=== PATIENT | female | born 1980 | race Caucasian/White ===

== ENCOUNTER → 2020-04-05 17:37 | Outpatient (CLI) | payer BC, SELFPAY ==
[2020-04-05 18:57] LABS: HCG,Quantitative 673 mIU/ml (0-5.42)
== END ==
PROVIDERS: Visit Provider Nurse Practitioner Obstetrics & Gynecology
DX: N92.6 Irregular menstruation, unspecified (principal)
CPT/HCPCS: 36415; 84702

== ENCOUNTER → 2020-05-04 13:06 | Outpatient (CLI) | payer BC, SELFPAY ==
--- NOTE | 2020-05-04 13:06 | US_ITS ---
PROCEDURE: US OB TRANSVAGINAL CLINICAL INDICATION: for dates COMPARISON: No exams were available for comparison FINDINGS: An intrauterine gestational sac is present with a pole with a crown-rump length of 1.41cm correlating to gestational age of 7weeks 5days. No heart tones are identified. A yolk sac is present. There is a 2.5 cm left ovarian cyst IMPRESSION: Nonviable intrauterine gestation. No heart tones identified Dictated by: Ernst Garcia MD 05/04/2020 15:12 Ernst Garcia MD in [place] 05/04/2020 15:12
== END ==
PROVIDERS: PCP Family Medicine; Visit Provider Nurse Practitioner Obstetrics & Gynecology
DX: Z34.90 Encounter for supervision of normal pregnancy, unspecified, unspecified trimester (principal)
CPT/HCPCS: 76817

== ENCOUNTER → 2020-05-08 10:37 | Outpatient (CLI) | payer BC, SELFPAY ==
[2020-05-08 10:59] LABS: Basophils % 0.4 % (0.1-2.0); Eosinophils # 0.2 K/mm3 (0.0-0.4); Eosinophils % 2.4 % (0.1-12.0); Hematocrit 38.8 % (37.0-47.0); Hemoglobin 13.5 g/dL (12.2-16.2); Lymphocytes # 2.1 K/mm3 (0.7-4.5); Lymphocytes % 25.2 % (10-50); Mean Corpuscular HGB Conc 34.7 g/dL (31.8-35.4); Mean Corpuscular Hemoglobin 31.9 pg (27.0-31.2); Mean Corpuscular Volume 91.9 fl (81-99); Mean Platelet Volume 8.5 fl (7.4-10.4); Monocytes # 0.4 K/mm3 (0.1-1.0); Monocytes % 4.3 % (1.7-9.3); Neutrophils # 5.8 K/mm3 (1.8-7.8); Neutrophils % 67.7 % (37.0-80.0); Platelet Count 301 K/mm3 (142-424); Red Blood Count 4.22 M/mm3 (4.20-5.40); White Blood Count 8.5 K/mm3 (4.8-10.8)
[2020-05-08 12:01] LABS: Chloride 106 mmol/L (98-107); Potassium 4.5 mmoL/L (3.5-5.1); Sodium 138 mmol/L (136-145)
[2020-05-08 12:04] LABS: Blood Urea Nitrogen 9 mg/dl (7-17); Estimated Glomerular Filt Rate 112 ml/min (>60); GFR (African American) 136 ML/MIN (>60)
[2020-05-08 12:05] LABS: Anion Gap 14.5 mEq/L (5-15); Calcium 9.9 mg/dl (8.4-10.2); Carbon Dioxide 22 mmol/L (22.0-30.0); Glucose 121 mg/dl (74-100)
[2020-05-08 12:44] LABS: Coronavirus 19 IgG Antibody Negative (Negative); Coronavirus 19 IgM Antibody Negative (Negative)
== END ==
PROVIDERS: Visit Provider Nurse Practitioner Obstetrics & Gynecology
DX: Z01.818 Encounter for other preprocedural examination (principal); O03.9 Complete or unspecified spontaneous abortion without complication
CPT/HCPCS: 36415; 80048; 85025; 86328

== ENCOUNTER 2020-05-09 07:08 | Day surgery (SDC) | payer BC, SELFPAY ==
[2020-05-09] VITALS (12 sets, daily range): BP systolic 115–149; BP diastolic 60–85; PULSE 69–91; RESP 12–18; TEMP 36.5–36.7; O2SAT 97–100; BMI 39.9
--- NOTE | 2020-05-09 07:50 | P.PN_ITS ---
[facility] Anesthesia Checklist - Patient Identification Patient Identification: Arm Band, Verbal (Name & ) - Structural Data Admitted From: Home Planned Operative Procedure/s: d and e Consent for Planned Operative Procedure(s) Verified: Yes Verified Documents: History and Physical - NPO Status Verified Time NPO: 00:00 - Additional verifications Patient : No Anesthesia Reactions: No Hx Blood Transfusions: No Blood Transfusion Reaction: No Cephalosporin Allergy: No Previous Colonoscopy: No - Cardiovascular Assessment Heart Sounds: S1 & S2 Pulse Strength: Baseline Pulse Rhythm: Regular Peripheral Edema: No - Airway Assessment C-Spine Mobility Assessed: Yes TMJ Mobility Assessed: Yes Dentition: Good Dentition - Neurological Assessment Level of Consciousness: Awake, Alert, Appropriate Hx Seizures: No Numbness or tingling in extremities: No - Anesthesia Plan Anesthesia Risk discussed: Yes Anesthesia Plan: Verified ASA Class: II Anesthesia Type: General [facility] History I have reviewed the patient's past medical history: Yes Medical History: Denies:: Cancer, Diabetes Mellitus Type 1, Diabetes Mellitus Type 2, Internal Pacemaker, MRSA, Seizures *Have you ever received a pneumonia vaccine?: No *Have you received a flu vaccine this season?: No Other Medical History: Reports: Sinus Problems. Denies: Blood Transfusion Reaction Anesthesia experience/problems:: none Other Surgeries: Yes: Cholecystectomy, Diagnostic Lap. No: Pacemaker Amputation: No Fractures: No - *Social History Smoking Status: Never smoker Alcohol Intake: never Substance Use Type: denies use *Occupational Status:: employed Housing: house Household Members: family *Travel in the last 8 weeks: None Family Hx:: No significant family history DIGITAL FORENSICS EXAMINER history: Spontaneous
--- NOTE | 2020-05-09 09:17 | P.OP_ITS ---
Date of procedure: 05/09/20 Pre-op Diagnosis:: Missed Post-op Diagnosis:: Missed Procedure performed:: Dilation and evacuation with [place] suction Surgeon:: Nemesio Rice MD PROJECT DRILLING ENGINEER:: Tito Hernandez Anesthesia: LMA Estimated blood loss (mL): 100 Clinical Note:: She is a 39-year-old 3 para 2 who was about 8 weeks gestational age. She had an ultrasound that showed a 7-week nonviable fetus. This was done in the radiology department. I repeated the ultrasound yesterday my office and confirmed that there was no heart rate activity and no flow in the fetus. As result that she was off her dilation evacuation. Operative findings:: She had an anteverted bulky uterus consistent with her gestational age. Operative note:: She was taken the operating room where LMA anesthesia was found be adequate. She was prepped and draped in normal sterile fashion in the lithotomy position. Weighted speculum was placed in vagina and the anterior lip of the cervix was grasped with a tenaculum. I then dilated the cervix to approximately 10 mm. A 10 mm curved [place] suction curette was then inserted into the uterine cavity and the uterine cavity was evacuated. This was followed by a gentle curettage. She tolerated the procedure well and was taken the recovery room in excellent condition. All sponge and instrument counts were correct. The estimated blood loss was approximately 100 cc. Condition: stable Disposition: PACU Specimens:: Products of conception Complications:: None
--- NOTE | 2020-05-09 09:25 | HMH.ANESI ---
[facility] Anesthesia Record Part I Intake, IV Amount: 900 Estimated blood loss (mL): 100 Urine output (mL): 100 Blood Pressure: 142/80 SaO2: 100 Pulse Rate: 81 Respiratory Rate: 12 Temperature: 97.9 F Patient is:: Awake, Stable Stable to PACU at:: 09:20
--- NOTE | 2020-05-09 12:19 | HMH.ANESII ---
[facility] Anesthesia Record Part II Discharge Time: 09:50 Destination: Surgical Day Care (OP Surgery) PACU nurse assessment reviewed?: Yes Patient Condition:: Good Anesthesia Complications:: None Swallowing reflex intact?: Yes Cyanosis?: No Blood Pressure: 122/71 Pulse Rate: 72 Temperature: 97.9 F Mental Status: Alert & Oriented Pain level:: 3 Nausea and/or vomitting:: None Intake, IV Amount: 0
== END 2020-05-09 11:00 | disposition home or self-care (01) ==
LOC: OR 07:10
PROVIDERS: PCP Family Medicine; Visit Provider Nurse Practitioner Obstetrics & Gynecology
PROC: (CPT 59820; principal; 2020-05-09 08:30)
DX: O02.1 Missed abortion (principal); Z90.49 Acquired absence of other specified parts of digestive tract; Z88.6 Allergy status to analgesic agent; Z88.5 Allergy status to narcotic agent; Z88.8 Allergy status to other drugs, medicaments and biological substances
CPT/HCPCS: 59820; 96374; J2405

== ENCOUNTER → 2020-11-16 16:07 | Outpatient (CLI) | payer BC, SELFPAY ==
[2020-11-16 19:09] LABS: HCG,Quantitative 33350 mIU/ml (0-5.42)
== END ==
PROVIDERS: Visit Provider Nurse Practitioner Obstetrics & Gynecology
DX: Z32.00 Encounter for pregnancy test, result unknown (principal)
CPT/HCPCS: 36415; 84702

== ENCOUNTER → 2020-11-20 12:01 | Outpatient (CLI) | payer BC, SELFPAY ==
[2020-11-20 12:30] LABS: Basophils % 0.4 % (0.1-2.0); Eosinophils # 0.2 K/mm3 (0.0-0.4); Eosinophils % 2.8 % (0.1-12.0); Hematocrit 40.9 % (37.0-47.0); Hemoglobin 13.6 g/dL (12.2-16.2); Lymphocytes # 2.1 K/mm3 (0.7-4.5); Lymphocytes % 25.7 % (10-50); Mean Corpuscular HGB Conc 33.2 g/dL (31.8-35.4); Mean Corpuscular Hemoglobin 30.6 pg (27.0-31.2); Mean Corpuscular Volume 92.1 fl (81-99); Mean Platelet Volume 9.4 fl (7.4-10.4); Monocytes # 0.3 K/mm3 (0.1-1.0); Monocytes % 3.7 % (1.7-9.3); Neutrophils # 5.6 K/mm3 (1.8-7.8); Neutrophils % 67.5 % (37.0-80.0); Platelet Count 292 K/mm3 (142-424); Red Blood Count 4.44 M/mm3 (4.20-5.40); Red Cell Distribution Width 13.3 % (11.5-17.5); White Blood Count 8.3 K/mm3 (4.8-10.8)
[2020-11-21 11:22] LABS: HIV Screen 4th Generation wRfx Non Reactive (Non Reactive); Hepatitis B Surface Antigen Negative (Negative); Hepatitis C Antibody <0.1 s/co ratio (0.0-0.9)
[2020-11-21 12:36] LABS: Rapid Plasma Reagin Ab Titer Non Reactive (NonRea<1:1)
== END ==
PROVIDERS: Visit Provider Nurse Practitioner Obstetrics & Gynecology
DX: Z34.90 Encounter for supervision of normal pregnancy, unspecified, unspecified trimester (principal)
CPT/HCPCS: 36415; 85025; 86592; 86703; 86762; 86850; 87340; 87380; G0432

== ENCOUNTER → 2020-11-27 10:29 | Outpatient (CLI) | payer BC, SELFPAY ==
--- NOTE | 2020-11-27 10:29 | US_ITS ---
PROCEDURE: US OB <= 14 WEEKS FETUS CLINICAL INDICATION: for dates COMPARISON: US US OB TRANSVAGINAL from 05/04/2020 FINDINGS: An intrauterine gestational sac is present with a pole with a crown-rump length of 1.82cm correlating to gestational age of 8weeks 3days. heart tones are present with an FHR of 160bpm. Yolk sac is noted. Bilateral ovarian cysts are noted measuring up to 1.6 centimeters on the left and 2.8 centimeters on the right. IMPRESSION: Single viable intrauterine gestation with gestational age of 8 weeks and 3 days. Estimated due date by Ultrasound is 07/06/2021 Dictated by: Lyn Villanueva 11/27/2020 11:44 Lyn Villanueva in [facility] 11/27/2020 11:44
== END ==
PROVIDERS: PCP Family Medicine; Visit Provider Nurse Practitioner Obstetrics & Gynecology
DX: Z34.90 Encounter for supervision of normal pregnancy, unspecified, unspecified trimester (principal)
CPT/HCPCS: 76801

== ENCOUNTER → 2021-02-21 08:52 | Outpatient (CLI) | payer BC, SELFPAY ==
--- NOTE | 2021-02-21 08:52 | US_ITS ---
PROCEDURE: US OB /MATERNAL DETAIL CLINICAL INDICATION: 20 weeks gestation COMPARISON: US US OB <= 14 WEEKS FETUS from 11/27/2020 FINDINGS: Single live intrauterine gestation is present which started in cephalic presentation but ended up in breech presentation. heart and body motion noted. Cervix is closed and measures 4 cm. The placenta is fundal and posterior and grade 1. . Complete survey performed and was unremarkable on the submitted images as in PACS. No discrete anomalies identified on survey imaging by technologist. Active fetus. Three-vessel cord with satisfactory umbilical cord insertion. 4- chamber heart noted. Survey of brain & ventricles Unremarkable. Face and neck survey unremarkable. Diaphragm and chest views unremarkable. Abdomen: Both kidneys noted and unremarkable. Stomach noted and satisfactory. Spine: Survey of the spine satisfactory with no anomalies identified nor imaged. Both arms and legs noted. Amniotic Fluid: Adequate. Maternal adnexa: No significant findings. Measurements: Average ultrasound age 20weeks 4days. Gestational Age 20weeks 5days Estimated due date by ultrasound age 1107/07/2021. Estimated weight 361g BPD = 20weeks 4days OFD = 21weeks 1day HC = 20weeks 1day AC = 20weeks 3days FL = 21weeks Growth Percentile= 36Percent% Heart Rate = 149bpm Cerebellum = 20weeks 4days Humerus = 21weeks 3days HC/AC is 1.17 CI is 0.76 FL/BPD is 0.72 FL/AC is 0.23 IMPRESSION: Live IUP with an average ultrasound age of 20 weeks 4 days. No obvious anomalies. Please see above for detail. Dictated by: Ernst Garcia MD 02/22/2021 05:05 Ernst Garcia MD in [facility] 02/22/2021 05:05
== END ==
LOC: RAD 08:52
PROVIDERS: PCP Family Medicine; Visit Provider Nurse Practitioner Obstetrics & Gynecology
DX: Z34.90 Encounter for supervision of normal pregnancy, unspecified, unspecified trimester (principal); Z3A.20 20 weeks gestation of pregnancy
CPT/HCPCS: 76811

== ENCOUNTER → 2021-04-20 10:29 | Outpatient (CLI) | payer BC, SELFPAY ==
[2021-04-20 10:55] LABS: Glucose,Fasting 102 mg/dl (74-100)
[2021-04-20 12:11] LABS: Glucose 1 Hour 203 mg/dL (74-100)
== END ==
PROVIDERS: Visit Provider Nurse Practitioner Obstetrics & Gynecology
DX: Z34.90 Encounter for supervision of normal pregnancy, unspecified, unspecified trimester (principal); Z3A.25 25 weeks gestation of pregnancy
CPT/HCPCS: 36415; 82951

== ENCOUNTER → 2021-04-27 09:43 | Outpatient (CLI) | payer BC, SELFPAY ==
[2021-04-27 10:14] LABS: Glucose,Fasting 110 mg/dl (74-100)
[2021-04-27 11:33] LABS: Glucose 1 Hour 210 mg/dL (74-100)
[2021-04-27 12:29] LABS: Glucose 2 Hour 180 mg/dL (74-100)
[2021-04-27 13:21] LABS: Glucose 3 Hour 135 mg/dL (74-100)
== END ==
PROVIDERS: Visit Provider Nurse Practitioner Obstetrics & Gynecology
DX: Z34.90 Encounter for supervision of normal pregnancy, unspecified, unspecified trimester (principal)
CPT/HCPCS: 36415; 82951

== ENCOUNTER 2021-04-30 17:59 | Inpatient (IN) | payer BC, SELFPAY ==
[2021-04-30 15:01] VITALS: BMI 41.9
--- NOTE | 2021-04-30 15:02 | US_ITS ---
PROCEDURE INFORMATION: Exam: US Biophysical Profile Without Non-Stress Test Exam date and time: 04/30/2021 3:02 PM Age: 40 years old Clinical indication: Pain indication: Left upper quadrant pain began today; ; Additional info: Md order TECHNIQUE: Imaging protocol: US biophysical profile without non-stress testing. COMPARISON: US OB /MATERNAL DETAIL 02/21/2021 9:09 AM FINDINGS: heart rate: heart rate recorded to be 143 bpm. Presentation: Cephalic presentation. Amniotic fluid index: Amniotic fluid index is 14.9 cm. BIOPHYSICAL PROFILE: Breathin/2 Gross body movements: 2/2 tone: 2/2 Qualitative amniotic fluid: 2/2 Biophysical Profile Score: 8/8 BIOMETRY: Gestational age (AUA): Average gestational age is 30 weeks 6 days. IMPRESSION: Biophysical profile score is 8 out of 8.
--- NOTE | 2021-04-30 15:03 | US_ITS ---
PROCEDURE INFORMATION: Exam: US Retroperitoneal; Complete; Kidneys and Bladder Exam date and time: 04/30/2021 3:03 PM Age: 40 years old Clinical indication: Abdominal pain; Acute; ; Patient HX: Left upper quadrant pain with ; Additional info: Left quad pain TECHNIQUE: Imaging protocol: Real-time ultrasound of the retroperitoneum with image documentation. Complete exam focused on the kidneys and bladder. COMPARISON: US OB /MATERNAL DETAIL 02/21/2021 9:09 AM FINDINGS: Right kidney: Right kidney measures 10.6 x 4.8 x 6.6 cm. Right kidney is within normal limits. Left kidney: Left kidney measures 13.8 x 6.7 x 5.4 cm. Slight decreased blood flow noted to the left kidney, as imaged. Spleen: Spleen is within normal limits. Urinary bladder: Unremarkable. IMPRESSION: 1. Left kidney is upper limits of normal in size. Blood flow is subjectively decreased as imaged. 2. Right kidney is within normal limits. 3. No renal masses.
[2021-04-30 16:02] VITALS: BMI 41.9
--- NOTE | 2021-04-30 17:26 | HMH.OBAPHP ---
OB - H&P: HPI Antepartum - History of Present Illness Chief complaint: Left flank pain History of present illness: She is a 40-year-old 5 para 2 aborta 2 at 30 weeks gestational age with sudden onset of left-sided flank pain. She was seen in my office and her pain was extremely severe. On examination it seemed like she had pain along the muscles in her back. It was quite tense and extremely sore. She was sent up to labor and delivery and had an ultrasound that just showed subjectively slightly enlarged left kidney with subjective decreased blood flow to the kidney. She did not have any CVA tenderness though. Since she is in quite a lot of pain we will go ahead and admit her for observation overnight. - History of Present Criteria for establishing EDC:: LMP confirmed by 1st trimester US care: good care Ultrasounds: normal 1st trimester US, normal mid trimester US Obstetrical complications: gestational diabetes Medical complications: none [facility] History I have reviewed the patient's past medical history: Yes Medical History: Denies:: Cancer, Diabetes Mellitus Type 1, Diabetes Mellitus Type 2, Internal Pacemaker, MRSA, Seizures *Have you ever received a pneumonia vaccine?: No *Have you received a flu vaccine this season?: No Other Medical History: Reports: Sinus Problems. Denies: Blood Transfusion Reaction Other Surgeries: Yes: Cholecystectomy, Dilation and Curettage, Diagnostic Lap. No: , Pacemaker Amputation: No Fractures: No - *Social History Smoking Status: Never smoker Alcohol Intake: never Alcohol Intake Frequency:: other Substance Use Type: denies use *Occupational Status:: employed Housing: house Household Members: family *Travel in the last 8 weeks: None Family Hx:: No significant family history DIRECTOR OF MATERNITY SERVICES history: Spontaneous , Endometriosis Para: 3 Review of Systems - Review of Systems Review of systems:: pertinent systems reviewed and negative unless documented below Meds Home Medications Medication Instructions Recorded Confirmed Type prenat.vits,jose f,nsy-mqag-ntmht 1 tab PO DAILY 05/01/20 04/30/21 History folic acid 0.8 mg capsule 0.8 mg PO DAILY 11/20/20 04/30/21 History promethazine 12.5 mg tablet 12.5 mg PO Q6H PRN #20 tab 12/05/20 04/30/21 Rx ferrous sulfate 325 mg (65 mg 325 mg PO DAILY #30 tab 02/14/21 04/30/21 Rx iron) tablet nifedipine 60 mg tablet,extended 60 mg PO DAILY #30 tab 03/15/21 04/30/21 Rx release aspirin 81 mg chewable tablet 81 mg PO DAILY PRN 04/26/21 04/30/21 History Allergies Allergy/AdvReac Type Severity Reaction Status Date / Time hydrocodone Allergy Verified 04/30/21 14:13 ketorolac Allergy Verified 04/30/21 14:13 NSAIDS (Non-Steroidal Allergy Verified 04/30/21 14:13 Anti-Inflamma Opioids - Morphine Analogues Allergy Verified 04/30/21 14:13 Penicillins Allergy Unknown Verified 04/30/21 14:13 allergy reaction OB - H&P: Exam - Constitutional no acute distress - Routine HEENT Exam Head: Present: normocephalic Eye: Present: EOMI, PERRL ENT: Present: mucous membranes moist - Routine Neck Exam Present: supple, full ROM - Routine Respiratory Exam Absent: accessory muscle use (good air entry bilaterally), respiratory distress, wheezes, crackles - Routine Cardiovascular Exam Present: RRR. Absent: murmur - Routine Abdominal Exam Present: soft, normoactive bowel sounds. Absent: tenderness, distended, guarding Comments: She was tender along her back on the left side of her spine below the ribs. The muscles were quite tight. - Routine Rectal Exam Patient deferred: visual exam, digital exam - Routine Exam Patient deferred: external exam, groin exam, perineal exam - Routine Extremities Exam Present: full ROM. Absent: cyanosis, edema - Routine Skin Exam Present: intact. Absent: cyanosis - Routine Neurological Exam Present: alert, oriented X3 - Routine Psychiatric Ex
[2021-04-30 18:11] VITALS: BP 150/83; RESP 20; TEMP 36.9; O2SAT 98
[2021-04-30 18:18] LABS: Microscopic, Urine URINE MICROSCOPIC (MICROSCOPIC)
[2021-04-30 18:21] LABS: Appearance,Urine CLEAR (Clear); Bilirubin,Urine Negative (Negative); Blood, Urine 2+ (Negative); Color,Urine YELLOW (Yellow); Glucose,Urine (UA) Negative (Negative); Ketones,Urine Negative (Negative); Leukocyte Esterase,Urine TRACE (Negative); Nitrate,Urine Negative (Negative); Protein,Urine Negative (Negative); Urobilinogen,Urine 0.2 EU/dl (0.2)
[2021-04-30 18:33] LABS: WBC,Urine Occasional #/hpf (0-3)
[2021-04-30 18:34] LABS: Squamous Epithelial Cell,Urine Occasional #/hpf (0-5)
[2021-04-30 18:35] LABS: Amphetamine/Metha Screen,Urine Negative ng/ml (<1000); Barbiturates Screen,Urine Negative ng/ml (<200)
[2021-04-30 18:36] LABS: Benzodiazepines Screen,Urine Negative ng/ml (<200); Cannabinoid Screen,Urine Negative ng/ml (<50)
[2021-04-30 18:37] LABS: Cocaine Screen,Urine Negative ng/ml (<300)
[2021-04-30 18:38] LABS: Methadone Screen,Urine Negative ng/ml (<300)
[2021-04-30 18:39] LABS: Opiate Screen,Urine Negative ng/ml (<300); Phencyclidine Screen,Urine Negative ng/ml (<25)
[2021-04-30 20:00] VITALS: RESP 18
[2021-04-30 20:23] LABS: Basophils % 0.3 % (0.1-2.0); Eosinophils # 0.1 K/mm3 (0.0-0.4); Eosinophils % 0.8 % (0.1-12.0); Hematocrit 35.4 % (37.0-47.0); Lymphocytes # 1.2 K/mm3 (0.7-4.5); Lymphocytes % 7.4 % (10-50); Mean Corpuscular HGB Conc 33.8 g/dL (31.8-35.4); Mean Corpuscular Hemoglobin 31.8 pg (27.0-31.2); Mean Platelet Volume 10.3 fl (7.4-10.4); Monocytes # 0.4 K/mm3 (0.1-1.0); Monocytes % 2.5 % (1.7-9.3); Neutrophils # 14.8 K/mm3 (1.8-7.8); Neutrophils % 89.1 % (37.0-80.0); Platelet Count 317 K/mm3 (142-424); Red Blood Count 3.77 M/mm3 (4.20-5.40); Red Cell Distribution Width 13.9 % (11.5-17.5); White Blood Count 16.6 K/mm3 (4.8-10.8)
[2021-04-30 20:26] LABS: MANUAL DIFFERENTIAL MANUAL DIFFERENTIAL (MANUAL DIFF)
[2021-04-30 20:30] LABS: Chloride 109 mmol/L (98-107); Sodium 137 mmol/L (136-145)
[2021-04-30 20:32] LABS: Blood Urea Nitrogen 5 mg/dl (7-17); Creatinine Clearance Estimated 137 mL/min (50-200); Estimated Glomerular Filt Rate 138 ml/min (>60); GFR (African American) 167 ML/MIN (>60)
[2021-04-30 20:33] LABS: Alanine Aminotransferase 17 U/L (12-78); Albumin Level 3.4 g/dl (3.5-5.0); Albumin/Globulin Ratio 1.1 (1.1-1.8); Alkaline Phosphatase 108 U/L (38-126); Aspartate Amino Transferase 24 U/L (14-36); Carbon Dioxide 18 mmol/L (22.0-30.0); Glucose 118 mg/dl (74-100); Total Protein,Serum 6.4 g/dl (6.3-8.2)
[2021-04-30 20:34] LABS: Bilirubin,Total < 0.1 mg/dl (0.2-1.3)
[2021-04-30 21:09] LABS: Lymphocytes % 6 % (10-50); Monocytes % 1 % (2-9); Neutrophils % 92 % (42-76); Platelet Estimate Normal; RBC Morphology Normal; Total Cells Counted 100
[2021-04-30 22:00] VITALS: RESP 18
[2021-05-01] VITALS (7 sets, daily range): BP systolic 157–160; BP diastolic 84–93; PULSE 70–77; RESP 18; TEMP 36.7–37; O2SAT 97–100
[2021-05-01 07:25] LABS: Basophils % 0.3 % (0.1-2.0); Eosinophils # 0.2 K/mm3 (0.0-0.4); Eosinophils % 1.1 % (0.1-12.0); Hematocrit 34.7 % (37.0-47.0); Hemoglobin 11.5 g/dL (12.2-16.2); Lymphocytes # 2.1 K/mm3 (0.7-4.5); Lymphocytes % 14.7 % (10-50); Mean Corpuscular HGB Conc 33.1 g/dL (31.8-35.4); Mean Corpuscular Hemoglobin 31.6 pg (27.0-31.2); Mean Corpuscular Volume 95.4 fl (81-99); Mean Platelet Volume 9.6 fl (7.4-10.4); Monocytes # 0.7 K/mm3 (0.1-1.0); Monocytes % 4.7 % (1.7-9.3); Neutrophils # 11.2 K/mm3 (1.8-7.8); Neutrophils % 79.2 % (37.0-80.0); Platelet Count 295 K/mm3 (142-424); Red Blood Count 3.64 M/mm3 (4.20-5.40); White Blood Count 14.2 K/mm3 (4.8-10.8)
[2021-05-01 08:02] LABS: Alanine Aminotransferase 18 U/L (12-78); Albumin Level 3.1 g/dl (3.5-5.0); Albumin/Globulin Ratio 1.1 (1.1-1.8); Alkaline Phosphatase 89 U/L (38-126); Anion Gap 10.9 mEq/L (5-15); Aspartate Amino Transferase 30 U/L (14-36); Bilirubin,Total 0.2 mg/dl (0.2-1.3); Blood Urea Nitrogen 5 mg/dl (7-17); Calcium 8.8 mg/dl (8.4-10.2); Carbon Dioxide 22 mmol/L (22.0-30.0); Chloride 108 mmol/L (98-107); Creatinine Clearance Estimated 137 mL/min (50-200); Estimated Glomerular Filt Rate 138 ml/min (>60); GFR (African American) 167 ML/MIN (>60); Globulin 2.8 g/dL (1.3-3.2); Glucose 102 mg/dl (74-100); Potassium 3.9 mmoL/L (3.5-5.1); Sodium 137 mmol/L (136-145); Total Protein,Serum 5.9 g/dl (6.3-8.2)
--- NOTE | 2021-05-01 09:26 | XR_ITS ---
PROCEDURE: XR IVP W KUB CLINICAL INDICATION: Flank pain left COMPARISON: No exams were available for comparison FINDINGS: Patient is in 3rd trimester with severe left-sided flank pain. Limited IVP was performed. Occupational Therapist Rehab Manager exam shows a intrauterine which is in the cephalic presentation spine to the maternal right. No obvious renal or ureteral calculi are identified. Surgical clips are present in the right upper quadrant. There is a mild amount of gas within the colon. Small stones could be obscured by the fetus or the bowel gas. 5 minutes image shows delayed excretion of contrast on the left with dilated left renal calices. There is mild ectasia of the right renal collecting system proximally. 15 minutes image once again shows mild left hydronephrosis. The ureter is not filled on either side. There is mild ectasia of the right renal collecting system and proximal ureter to the L3 level. 15 minutes delayed postvoid image shows full column of opacification of the left ureter to the UVJ. The ureter tapers distally on the left with suspected tiny filling defect at the distal left ureter suspicious for small distal ureteral calculus. This is difficult to measure as the suspected stone is not identified on the running rigger exam. There does appear to be a sliver of contrast distal to this region. There is decreased distention of the right renal pelvicaliceal system and proximal ureter on the postvoid exam. The right mid and distal ureter is not visualized. IMPRESSION: 1. Mild left hydronephrosis and hydroureter felt to be related to tiny stone or stones at the distal left ureter which are not measurable. This could be even related to recently passed stone with spasm of the distal ureter. The dilated left pelvocaliceal system appears slightly less prominent on the postvoid image. 2. Mild prominence of the right renal pelvicaliceal system and proximal ureter to the L3 level probably related to the gravid uterus.. Dictated by: Ernst Garcia MD 05/01/2021 11:18 Ernst Garcia MD in [facility] 05/01/2021 11:18
--- NOTE | 2021-05-01 10:33 | HMH.ACPN2 ---
Internal Medicine - PN: Subj *Date: 05/01/21 *Time: 10:33 Interval history: She still continues to have left flank pain and it is now radiating down into her groin. I suspect that she has a kidney stone. Overnight we have been straining her urine and there was some small granules of sand-like substance in the strainer. She has been requiring Dilaudid every 3-4 hours for pain. Exam Vital signs and Labs for Last 24 Hours: Temp Resp BP Pulse Ox 98.4 F 18 150/83 H 98 04/30/21 18:11 05/01/21 07:17 04/30/21 18:11 04/30/21 18:11 Laboratory Results - last 24 hr 04/30/21 17:52: Urine Color Yellow, Urine Appearance Clear, Urine pH 7.0, Ur Specific [place] 1.010, Urine Protein Negative, Urine Glucose (UA) Negative, Urine Ketones Negative, Urine Blood 2+, Urine Nitrate Negative, Urine Bilirubin Negative, Urine Urobilinogen 0.2, Ur Leukocyte Esterase Trace, Urine RBC 3-5, Urine WBC Occasional, Ur Squamous Epith Cells Occasional, Urine Bacteria None 04/30/21 17:52: Urine Opiates Screen Negative, Urine Methadone Screen Negative, Ur Barbituates Screen Negative, Ur Phencyclidine Scrn Negative, Ur Amphetamines Screen Negative, U Benzodiazepines Scrn Negative, Urine Cocaine Screen Negative, U Marijuana (THC) Screen Negative 04/30/21 20:10: Sodium 137, Potassium 4.0, Chloride 109 H, Carbon Dioxide 18 L, Anion Gap 14.0, BUN 5 L, Creatinine 0.50 L, Estimated Creat Clear 137, Estimated GFR 138, Est GFR ( Amer) 167, Glucose 118 H, Calcium 9.0, Total Bilirubin < 0.1 L, AST 24, ALT 17, Alkaline Phosphatase 108, Total Protein 6.4, Albumin 3.4 L, Globulin 3.0, Albumin/Globulin Ratio 1.1 04/30/21 20:10: WBC 16.6 H, RBC 3.77 L, Hgb 12.0 L, Hct 35.4 L, MCV 94.0, MCH 31.8 H, MCHC 33.8, RDW 13.9, Plt Count 317, MPV 10.3, Neut % (Auto) 89.1 H, Lymph % (Auto) 7.4 L, [place] % (Auto) 2.5, Eos % (Auto) 0.8, Baso % (Auto) 0.3, Neut # (Auto) 14.8 H, Lymph # (Auto) 1.2, [place] # (Auto) 0.4, Eos # (Auto) 0.1, Baso # (Auto) 0.0, Total Counted 100, Neutrophils % (Manual) 92 H, Lymphocytes % (Manual) 6 L, Monocytes % (Manual) 1 L, Basophils % (Manual) 1.0, Platelet Estimate Normal, RBC Morphology Normal 05/01/21 06:59: WBC 14.2 H, RBC 3.64 L, Hgb 11.5 L, Hct 34.7 L, MCV 95.4, MCH 31.6 H, MCHC 33.1, RDW 14.0, Plt Count 295, MPV 9.6, Neut % (Auto) 79.2, Lymph % (Auto) 14.7, [place] % (Auto) 4.7, Eos % (Auto) 1.1, Baso % (Auto) 0.3, Neut # (Auto) 11.2 H, Lymph # (Auto) 2.1, [place] # (Auto) 0.7, Eos # (Auto) 0.2, Baso # (Auto) 0.0 05/01/21 06:59: Sodium 137, Potassium 3.9, Chloride 108 H, Carbon Dioxide 22, Anion Gap 10.9, BUN 5 L, Creatinine 0.50 L, Estimated Creat Clear 137, Estimated GFR 138, Est GFR ( Amer) 167, Glucose 102 H, Calcium 8.8, Total Bilirubin 0.2, AST 30, ALT 18, Alkaline Phosphatase 89, Total Protein 5.9 L, Albumin 3.1 L, Globulin 2.8, Albumin/Globulin Ratio 1.1 I & O for Last 24 hours: Intake & Output 04/28/21 04/29/21 04/30/21 05/01/21 11:59 11:59 11:59 11:59 Weight 252 lb - Constitutional no acute distress - *Routine HEENT Exam Head: Present: normocephalic Eye: Present: EOMI, PERRL ENT: Present: mucous membranes moist Assessment and Plan (1) Low back pain during Status: Acute Category: Medical Code(s): O26.899 - Other specified related conditions, unspecified trimester; M54.5 - Low back pain (2) Renal colic on left side Status: Acute Category: Medical Code(s): N23 - Unspecified renal colic - Assessment and plan all Dx Assessment and Plan for all problems:: She continues to have renal colic-like symptoms. We will go ahead and get an IVP today. They will just do 3 pictures with diet to see if she does have a blockage on the left-hand side. We have increased her fluids and hopefully she will pass the stone. We will get a urology consult but unfortunately Dr. Maldonado is not here today. We will also consider starting IV antibiotics to prevent infection of the stone.
[2021-05-02] VITALS (22 sets, daily range): BP systolic 125–164; BP diastolic 67–92; PULSE 71–105; RESP 16–18; TEMP 36.7–36.9; O2SAT 95–100
--- NOTE | 2021-05-02 | XR_ITS ---
PROCEDURE: XR KUB CLINICAL INDICATION: LEFT URTEROSCOPY IN OR PT 31 WEEKS AND SHIELDED COMPARISON: No exams were available for comparison FINDINGS: Fluoroscopy time: 29 seconds Two images submitted demonstrates a left ureteral scope in place on 1 image and the distal end of a ureteral stent on the other in the region the urinary bladder IMPRESSION: S/p left ureteral stent placement with fluoroscopic guidance Dictated by: Ernst Garcia MD 05/02/2021 17:19 Ernst Garcia MD in [facility] 05/02/2021 17:19
--- NOTE | 2021-05-02 07:39 | P.CONPHA_ITS ---
[facility] Pharmacy VTE Monitoring - Patient Demographics Admission date: 04/30/21 Report Date: 05/02/21 Time: 07:39 Allergies/Adverse Reactions: Patient Allergies hydrocodone Allergy (Verified 04/30/21 14:13) ketorolac Allergy (Verified 04/30/21 14:13) NSAIDS (Non-Steroidal Anti-Inflamma Allergy (Verified 04/30/21 14:13) Opioids - Morphine Analogues Allergy (Verified 04/30/21 14:13) Penicillins Allergy (Verified 04/30/21 14:13) Unknown allergy reaction Height: 1.65 m Weight: 114.305 kg Patient Problems: Current Active Problems Low back pain during (Acute) Renal colic on left side (Acute) - VTE Risk Labs: VTE Related Lab Results Hgb 11.5 g/dL (12.2-16.2) L 05/01/21 06:59 Hct 34.7 % (37.0-47.0) L 05/01/21 06:59 Plt Count 295 K/mm3 (142-424) 05/01/21 06:59 BUN 5 mg/dl (7-17) L 05/01/21 06:59 Creatinine 0.50 mg/dl (0.52-1.04) L 05/01/21 06:59 Estimated Creat Clear 137 mL/min (50-200) 05/01/21 06:59 - Prophylaxis VTE Prophylaxis Ordered?: Yes Types of VTE Prophylaxis: TEDS Knee High Location of Applied Device: Bilateral Lower Extremeties
[2021-05-02 11:55] LABS: Coronavirus 19, PCR Not Detected (NotDetected); Influenza A, PCR Not Detected (NotDetected); Influenza B, PCR Not Detected (NotDetected)
--- NOTE | 2021-05-02 13:30 | HMH.ACPN2 ---
Internal Medicine - PN: Subj *Date: 05/02/21 *Time: 13:30 Interval history: HD #3 30 weeks with left flank pain has passed some urinary sediment but no gross stone Pain improved with IV dilaudid urology consult today with plan for ureteroscopy and possible stone extraction Exam Vital signs and Labs for Last 24 Hours: Temp Pulse Resp BP Pulse Ox 98.2 F 76 18 132/87 98 05/02/21 08:00 05/02/21 08:00 05/02/21 08:00 05/02/21 08:00 05/02/21 08:00 Laboratory Results - last 24 hr 05/02/21 11:50: SARS-CoV-2 (PCR) Not detected, Influenza A Untype (PCR) Not detected, Influenza Type B (PCR) Not detected I & O for Last 24 hours: Intake & Output 04/30/21 05/01/21 05/02/21 05/03/21 11:59 11:59 11:59 11:59 Output Total 1000 / 1000 Balance -1000 / -1000 Weight 252 lb Narrative: CONSTITUTIONAL: no acute distress HEENT: mucous membranes moist PULMONARY: breathing unlabored without audible wheezes CV: no tachycardia or visible JVD; normal LE peripheral pulses ABD: soft, NT/ND, no guarding : fundus non-tender SKIN: no visible rash or lesions EXT: 1+ edema LEs NEURO: alert/oriented, no altered mental status PSYCH: appropriate mood and demeanor NST: category 1 Assessment and Plan (1) 30 weeks gestation of Status: Acute Category: Medical Code(s): Z3A.30 - 30 weeks gestation of (2) Low back pain during Status: Acute Category: Medical Code(s): O26.899 - Other specified related conditions, unspecified trimester; M54.5 - Low back pain (3) Renal colic on left side Status: Acute Category: Medical Code(s): N23 - Unspecified renal colic - Assessment and plan all Dx Assessment and Plan for all problems:: Plan for evaluation with ureteroscopy this afternoon Continue daily NST
--- NOTE | 2021-05-02 14:34 | HMH.CONS ---
*Admission Date: 04/30/21 *Reason for consult:: Left flank pain *History of present illness: Patient is 40-year-old white female who was 31 weeks . She was admitted 2 days ago with left flank pain radiating into her groin. Was admitted for renal colic. Her white count on admission was 16.6. Her creatinine was 0.5. Urinalysis showed 2+ blood white cell. A limited IVP was performed. Food Order Delivery Runner film showed no evidence of calcifications the course of the collecting system. 5-minute film showed delayed excretion of contrast on the left with dilated left renal calyces. There was mild ectasia of the right renal collecting system oxalate. 15-minute image again showed mild left hydronephrosis. The ureter was not filled on either side. Delayed post void image showed full column of contrast down to the left UVJ. The ureter tapers distally on the left with a tiny filling defect at the distal left ureter suspicious for small distal stone. Patient has continued to require IV pain medication on a regular basis. Drink fluids and take in some food. She has remained afebrile. [facility] History Medical History: Denies:: Cancer, Diabetes Mellitus Type 1, Diabetes Mellitus Type 2, Internal Pacemaker, MRSA, Seizures *Have you ever received a pneumonia vaccine?: No *Have you received a flu vaccine this season?: No Other Medical History: Reports: Sinus Problems. Denies: Blood Transfusion Reaction Other Surgeries: Yes: Cholecystectomy, Dilation and Curettage, Diagnostic Lap. 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 history: Spontaneous , Endometriosis Para: 3 Review of Systems - Review of Systems Review of systems:: pertinent systems reviewed and negative unless documented below Meds Home Medications Medication Instructions Recorded Confirmed Type prenat.vits,jose f,[id number]-wzlz-ytnoy 1 tab PO DAILY 05/01/20 04/30/21 History folic acid 0.8 mg capsule 0.8 mg PO DAILY 11/20/20 04/30/21 History promethazine 12.5 mg tablet 12.5 mg PO Q6H PRN #20 tab 12/05/20 04/30/21 Rx ferrous sulfate 325 mg (65 mg 325 mg PO DAILY #30 tab 02/14/21 04/30/21 Rx iron) tablet nifedipine 60 mg tablet,extended 60 mg PO DAILY #30 tab 03/15/21 04/30/21 Rx release aspirin 81 mg chewable tablet 81 mg PO DAILY PRN 04/26/21 04/30/21 History Allergies Allergy/AdvReac Type Severity Reaction Status Date / Time hydrocodone Allergy Verified 04/30/21 14:13 ketorolac Allergy Verified 04/30/21 14:13 NSAIDS (Non-Steroidal Allergy Verified 04/30/21 14:13 Anti-Inflamma Opioids - Morphine Analogues Allergy Verified 04/30/21 14:13 Penicillins Allergy Unknown Verified 04/30/21 14:13 allergy reaction Exam Vital signs and Labs for Last 24 Hours: Temp Pulse Resp BP Pulse Ox 98.2 F 76 18 132/87 98 05/02/21 08:00 05/02/21 08:00 05/02/21 08:00 05/02/21 08:00 05/02/21 08:00 Laboratory Results - last 24 hr 05/02/21 11:50: SARS-CoV-2 (PCR) Not detected, Influenza A Untype (PCR) Not detected, Influenza Type B (PCR) Not detected I & O for Last 24 hours: Intake & Output 04/29/21 04/30/21 05/01/21 05/02/21 23:59 23:59 23:59 23:59 Output Total 1000 / 1000 Balance -1000 / -1000 Weight 114.305 kg - Constitutional no acute distress - *Routine HEENT Exam Head: Present: normocephalic Eye: Present: EOMI, PERRL ENT: Present: mucous membranes moist - *Routine Neck Exam Absent: lymphadenopathy - *Routine Respiratory Exam Absent: accessory muscle use - *Routine Cardiovascular Exam Absent: JVD - *Routine Abdominal Exam Absent: tenderness, distended - *Routine Extremities Exam Absent: cyanosis, club
--- NOTE | 2021-05-02 16:33 | HMH.ANESCL ---
[facility] Anesthesia Checklist - Patient Identification Patient Identification: Arm Band, Verbal (Name & ) - Structural Data Admitted From: Inpatient Planned Operative Procedure/s: cysto Consent for Planned Operative Procedure(s) Verified: Yes Verified Documents: History and Physical - NPO Status Verified Time NPO: 00:00 - Chart Verification Results Verified: CBC, BMP - Additional verifications Patient : No Anesthesia Reactions: No Hx Blood Transfusions: No Blood Transfusion Reaction: No Cephalosporin Allergy: No Previous Colonoscopy: No - Cardiovascular Assessment Heart Sounds: S1 & S2 Pulse Strength: Baseline Pulse Rhythm: Regular Peripheral Edema: No - Airway Assessment C-Spine Mobility Assessed: Yes TMJ Mobility Assessed: Yes Dentition: Good Dentition - Neurological Assessment Level of Consciousness: Awake, Alert, Appropriate Hx Seizures: No Numbness or tingling in extremities: No - Anesthesia Plan Anesthesia Risk discussed: Yes Anesthesia Plan: Verified ASA Class: III Anesthesia Type: General [facility] History I have reviewed the patient's past medical history: Yes Medical History: Denies:: Cancer, Diabetes Mellitus Type 1, Diabetes Mellitus Type 2, Internal Pacemaker, MRSA, Seizures *Have you ever received a pneumonia vaccine?: No *Have you received a flu vaccine this season?: No Other Medical History: Reports: Sinus Problems. Denies: Blood Transfusion Reaction Anesthesia experience/problems:: none Other Surgeries: Yes: Cholecystectomy, Dilation and Curettage, Diagnostic Lap. 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
--- NOTE | 2021-05-02 16:35 | P.PN_ITS ---
[facility] Anesthesia Record Part I Intake, IV Amount: 250 Estimated blood loss (mL): 0 Urine output (mL): 0 Blood Products used (#): none Blood Pressure: 141/69 SaO2: 100 Pulse Rate: 103 Respiratory Rate: 18 Temperature: 98.0 F Patient is:: Awake, Nasal O2, Stable Stable to PACU at:: 16:30
--- NOTE | 2021-05-02 16:35 | SUR.PHASEI ---
FHT'S IN PACU 140-144 PER OB RN
--- NOTE | 2021-05-02 16:39 | P.OP_ITS ---
Date of procedure: 05/02/21 Pre-op Diagnosis:: Left flank pain with left hydronephrosis Post-op Diagnosis:: Left ureteral stenosis was noted in the distal ureter, no evidence of stone. Procedure performed:: Cystoscopy with left ureteroscopy, dilation of left ureteral stenosis and left stent placement. Surgeon:: Kin Maldonado MD CASTING AGENT:: Other ([place]) Anesthesia: LMA Estimated blood loss (mL): 0 Clinical Note:: 40-year-old white female who is 31 weeks with a 3-day history of left flank pain presents for urologic evaluation and management. Operative findings:: Cystoscopy showed normal bladder. Ureteral orifices in their normal anatomic position. Left ureteroscopy revealed a stenotic segment about 3 cm proximal to the UVJ. The stenosis was dilated and ureteroscopy above the stenosis showed no evidence of stone. Stent was placed. Operative note:: Patient taken to the operating room after informed consent was obtained. Placed on the operating table in the supine position and general anesthesia administered. She was then placed into the dorsal lithotomy position and prepped and draped in the standard surgical fashion. The patient's abdomen above the umbilicus was protected with a shield. The 22 [place] cystoscope passed into the urethra and into the bladder without difficulty. The bladder was examined in a systematic fashion. There is no evidence of abnormalities. The ureteral orifices in their normal anatomic position. A guidewire passed into the left ureteral orifice and it passed into the left renal pelvis without difficulty. Spot images with fluoroscopy were obtained sparingly and there is no evidence of calcification in the distal ureter. The cystoscope then removed and the semirigid ureteroscope passed into the left ureter and up to the level of a stenotic segment. The scope could not passed behind the stenotic ureter and the ureteroscope was removed. A 4 x 15 UroMax balloon dilator then passed into the left ureter over the guidewire and the distal ureter dilated to 12 manuel for 2 minutes. The balloon then deflated and removed and the semirigid ureteroscope passed back into the left ureter we were now able to get past the stenotic segment and there was no evidence of stone about the stenosis. The ureteroscope was removed and the cystoscope was replaced. Guidewire was passed through the scope and a 4.8 x 24 Venezuelan stent was passed over the guidewire and under fluoroscopy the guidewire was removed. There was a good curl noted proxi eloy and distally. The bladder drained. Urojet placed into the urethra. Patient tolerated procedure well. The string was left on for later removal. Precautions were given regarding the string to the patient's . We will plan on seeing her back next week for stent removal. Condition: stable Disposition: PACU Specimens:: None Complications:: None
--- NOTE | 2021-05-02 16:52 | SUR.PHASEI ---
1635: heart tones checked by Maci Avalos OB RN. heart tones present. 1640: 2L oxygen placed via NC per pt request. pt felt like she was having a hard time catching her breath. O2 saturation was 99% on room air prior to oxygen being administered.
--- NOTE | 2021-05-02 17:05 | PC.NURSE ---
Report received from Francois Hamm RN.
[2021-05-03 00:20] VITALS: BP 140/70; PULSE 83; RESP 16; TEMP 37; O2SAT 97
[2021-05-03 04:00] VITALS: BP 141/83; PULSE 75; RESP 18; TEMP 36.7; O2SAT 99
--- NOTE | 2021-05-03 09:03 | HMH.DCSUM ---
General - General Admission date:: 04/30/21 Discharge date: 05/03/21 HPI HPI: She is a 40-year-old lady who is 30 weeks . She complains of severe left flank pain that came on rather suddenly. As result that she is admitted for pain relief and diagnosis. Hospital Course Hospital Course: She had severe left-sided flank pain that eventually radiated down to her groin. An IVP showed that she had dilation of the ureter or proximal to the pelvic junction where there was some stenosis and possibly a stone. As result of that she was seen by Dr. Maldonado in consultation. Dr. Maldonado took her to the operating room and dilated her ureter. There was a stenotic area just before the UV junction. He dilated this and also put in a stent. Since then she has been doing very well. Her pain has completely resolved. We will discharge her home to follow-up with me in approximately 1 week's time. She has her stent in place. Nonstress test is reactive. She will continue with her home medications. She does have chronic hypertension and will take her nifedipine. She was given a prescription for Percocet 5/325 number 10 tablets. To take as needed for any pain that she has. Her condition on discharge is stable and improved. Objective Vital signs: Temp Pulse Resp BP Pulse Ox 98.0 F 75 18 141/83 H 99 05/03/21 04:00 05/03/21 04:00 05/03/21 04:00 05/03/21 04:00 05/03/21 04:00 no acute distress - *Routine HEENT Exam Head: Present: normocephalic Eye: Present: EOMI, PERRL ENT: Present: mucous membranes moist Results Labs on day of discharge: Labs from last 24 hours 05/02/21 11:50 SARS-CoV-2 (PCR) Not detected Influenza A Untype (PCR) Not detected Influenza Type B (PCR) Not detected DS: Diagnosis - Discharge Diagnosis (1) 30 weeks gestation of Status: Acute (2) Low back pain during Status: Acute (3) Renal colic on left side Status: Acute (4) Stenosis of left ureter Status: Acute Discharge Plan - Patient Discharge Instructions ACTIVITY: No heavy lifting DIET: continue same diet - Follow up Plan Disposition: Home, Self-Care Condition at discharge:: Improved Home Medications: Home Medications Medication Instructions Recorded Confirmed Type prenat.vits,jose f,mhk-kimy-jbvgn 1 tab PO DAILY 05/01/20 05/03/21 History folic acid 0.8 mg capsule 0.8 mg PO DAILY 11/20/20 05/03/21 History promethazine 12.5 mg tablet 12.5 mg PO Q6H PRN #20 tab 12/05/20 05/03/21 Rx aspirin 81 mg chewable tablet 81 mg PO DAILY 04/26/21 05/03/21 History Ferrous Sulfate 325 mg PO DAILY 05/03/21 05/03/21 History NIFEdipine [Nifedipine ER] 60 mg PO DAILY 05/03/21 05/03/21 History Oxycodone HCl/Acetaminophen 1 tab PO Q4-6H PRN #12 tablet 05/03/21 Rx [Percocet 5/325mg tablet] Prescriptions/Medication Reconciliation: New Oxycodone HCl/Acetaminophen [Percocet 5/325mg tablet] 1 tab PO Q4-6H PRN #12 tablet PRN Reason: Severe Pain Continued prenat.vits,jose f,xjn-zsav-nlvoa 1 tab PO DAILY aspirin 81 mg chewable tablet 81 mg PO DAILY folic acid 0.8 mg capsule 0.8 mg PO DAILY promethazine 12.5 mg tablet 12.5 mg PO Q6H PRN #20 tab PRN Reason: nausea and vomiting Ferrous Sulfate 325 mg PO DAILY NIFEdipine [Nifedipine ER] 60 mg PO DAILY - Problem Reconciliation Problems Reviewed?: Yes
[2021-05-03 10:43] VITALS: BP 135/82; PULSE 89; TEMP 36.8
--- NOTE | 2021-05-03 10:43 | P.PN_ITS ---
[facility] Anesthesia Record Part II Discharge Time: 17:00 Destination: Obstetric Gynecology Dept PACU nurse assessment reviewed?: Yes Patient Condition:: Good Anesthesia Complications:: None Swallowing reflex intact?: Yes Cyanosis?: No Blood Pressure: 135/82 Pulse Rate: 89 Temperature: 98.3 F Mental Status: Alert & Oriented Pain level:: 1 Nausea and/or vomitting:: None Intake, IV Amount: 50
== END 2021-05-03 12:12 | disposition home or self-care (01) | DRG 818 ==
LOC: OBOUT 18:01 → OB 18:01
PROVIDERS: Urology; Admitting Provider Nurse Practitioner Obstetrics & Gynecology; PCP Family Medicine; Visit Provider Nurse Practitioner Obstetrics & Gynecology
PROC: 0TJ98ZZ Inspection of Ureter, Via Natural or Artificial Opening Endoscopic (ICD-10-PCS; CPT 52351; principal; 2021-05-02 15:30)
DX: O99.891 Other specified diseases and conditions complicating pregnancy (principal); N13.1 Hydronephrosis with ureteral stricture, not elsewhere classified; M54.5 Low back pain; N23 Unspecified renal colic; Z3A.31 31 weeks gestation of pregnancy; Z20.822 Contact with and (suspected) exposure to COVID-19; N35.82 Other urethral stricture, female
CPT/HCPCS: 52344; 52332; 36415; 59025; 74018; 74400; 76000; 76770; 76811; 76819; 76820; 80053; 80305; 81001; 85007; 85025; C2617; G0378; J0595; J2405; Q9967; U0003

== ENCOUNTER → 2021-05-18 12:00 | Outpatient (CLI) | payer BC, SELFPAY | PROVIDERS: Visit Provider Nurse Practitioner Family | DX: Z20.822 Contact with and (suspected) exposure to COVID-19 (principal) | CPT/HCPCS: C9803; U0003; U0005 ==

== ENCOUNTER → 2021-05-20 19:52 | Outpatient (CLI) | payer BC, SELFPAY | PROVIDERS: Visit Provider Nurse Practitioner Family | DX: Z20.822 Contact with and (suspected) exposure to COVID-19 (principal); U07.1 COVID-19 | CPT/HCPCS: C9803; U0003; U0005 ==

== ENCOUNTER 2021-05-31 15:50 | Inpatient (IN) | payer BC, SELFPAY ==
[2021-05-31] VITALS (10 sets, daily range): BP systolic 139–173; BP diastolic 74–97; PULSE 74–93; RESP 16–18; TEMP 36.2–36.8; O2SAT 94–100; BMI 42.5; BMI 43.2
[2021-05-31 11:53] LABS: Basophils % 0.4 % (0.1-2.0); Eosinophils # 0.1 K/mm3 (0.0-0.4); Eosinophils % 0.7 % (0.1-12.0); Hematocrit 40.7 % (37.0-47.0); Hemoglobin 13.8 g/dL (12.2-16.2); Lymphocytes # 1.6 K/mm3 (0.7-4.5); Lymphocytes % 19.4 % (10-50); Mean Corpuscular Hemoglobin 32.4 pg (27.0-31.2); Mean Corpuscular Volume 95.3 fl (81-99); Mean Platelet Volume 9.8 fl (7.4-10.4); Monocytes # 0.5 K/mm3 (0.1-1.0); Monocytes % 5.8 % (1.7-9.3); Neutrophils # 6.3 K/mm3 (1.8-7.8); Neutrophils % 73.8 % (37.0-80.0); Platelet Count 239 K/mm3 (142-424); Red Blood Count 4.27 M/mm3 (4.20-5.40); Red Cell Distribution Width 13.6 % (11.5-17.5); White Blood Count 8.5 K/mm3 (4.8-10.8)
[2021-05-31 12:15] LABS: D-Dimer 0.94 ug/mL (0.0-0.5)
[2021-05-31 12:34] LABS: Fibrinogen 465 mg/dL (229.9-363.5)
[2021-05-31 12:48] LABS: Activated Partial Thrombo Time 29.3 seconds (22.8-30.6); INR 0.88 (0.9-1.1)
[2021-05-31 12:51] LABS: Glucose,Random 90 mg/dL (74-100)
[2021-05-31 13:49] LABS: Alanine Aminotransferase 80 U/L (12-78); Anion Gap 9.8 mEq/L (5-15); Aspartate Amino Transferase 108 U/L (14-36); Blood Urea Nitrogen 12 mg/dl (7-17); Carbon Dioxide 18 mmol/L (22.0-30.0); Chloride 112 mmol/L (98-107); Creatinine Clearance Estimated 126 mL/min (50-200); Estimated Glomerular Filt Rate 138 ml/min (>60); GFR (African American) 167 ML/MIN (>60); Glucose 88 mg/dl (74-100); Potassium 3.8 mmoL/L (3.5-5.1); Sodium 136 mmol/L (136-145)
[2021-05-31 15:35] LABS: Influenza A, PCR Not Detected (NotDetected); Influenza B, PCR Not Detected (NotDetected)
[2021-05-31 16:02] LABS: Coronavirus 19, PCR Detected (NotDetected)
--- NOTE | 2021-05-31 16:19 | HMH.PHAINT ---
MEDICATION RECONCILIATION COMPLETE USING EXTERNAL PHARMACY FILL HISTORY AND LIST FROM OB OFFICE.
--- NOTE | 2021-05-31 17:00 | HMH.OBAPHP ---
OB - H&P: HPI Antepartum - History of Present Illness Chief complaint: Increased blood pressure, Covid History of present illness: She is a 40-year-old 5 para 2 aborta 2 who had increased blood pressure today in the office. She was here for nonstress test. She has recently been diagnosed with Covid. She has gestational diabetes. The gestational diabetes is diet-controlled. She has been on blood pressure medication for chronic hypertension as well. She has been taking 60 mg XL of nifedipine. - History of Present Criteria for establishing EDC:: LMP confirmed by 1st trimester US care: good care Ultrasounds: normal 1st trimester US, normal mid trimester US Obstetrical complications: preeclampsia, gestational hypertension Medical complications: other Narrative: She is Covid positive today. - Labs Blood type: A (+) positive Rubella: immune RPR/VDRL: nonreactive GBS status: negative HBsAG: unknown [facility] History I have reviewed the patient's past medical history: Yes Medical History: Reports:: Kidney Stones Denies:: Cancer, Diabetes Mellitus Type 1, Diabetes Mellitus Type 2, Internal Pacemaker, MRSA, Seizures *Have you ever received a pneumonia vaccine?: No *Have you received a flu vaccine this season?: No Other Medical History: Reports: Sinus Problems. Denies: Blood Transfusion Reaction Laterality Cases: Bilateral: Other Other Surgeries: Yes: No Previous Surgery, Cholecystectomy, Dilation and Curettage, Diagnostic Lap, Ureter Stent. 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 Review of Systems - Review of Systems Review of systems:: pertinent systems reviewed and negative unless documented below Meds Home Medications Medication Instructions Recorded Confirmed Type prenat.vits,jose f,qaa-ayka-drhrz 1 tab PO DAILY 05/01/20 05/31/21 History folic acid 0.8 mg capsule 0.8 mg PO DAILY 11/20/20 05/31/21 History aspirin 81 mg chewable tablet 81 mg PO DAILY 04/26/21 05/31/21 History Ferrous Sulfate 325 mg PO DAILY 05/03/21 05/31/21 History NIFEdipine [Nifedipine ER] 60 mg PO DAILY 05/03/21 05/31/21 History methylPREDNISolone See Rx Instructions PO PER PKG DIR 05/31/21 05/31/21 History [Methylprednisolone] Allergies Allergy/AdvReac Type Severity Reaction Status Date / Time hydrocodone Allergy Verified 05/31/21 09:47 ketorolac Allergy Verified 05/31/21 09:47 NSAIDS (Non-Steroidal Allergy Verified 05/31/21 09:47 Anti-Inflamma Opioids - Morphine Analogues Allergy Verified 05/31/21 09:47 Penicillins Allergy Unknown Verified 05/31/21 09:47 allergy reaction OB - H&P: Exam - Constitutional no acute distress - Routine HEENT Exam Head: Present: normocephalic Eye: Present: EOMI, PERRL ENT: Present: mucous membranes moist - Routine Neck Exam Present: supple, full ROM - Routine Respiratory Exam Absent: accessory muscle use (good air entry bilaterally), respiratory distress, wheezes, crackles - Routine Cardiovascular Exam Present: RRR. Absent: murmur - Routine Abdominal Exam Present: soft, normoactive bowel sounds. Absent: tenderness, distended, guarding - Routine Rectal Exam Patient deferred: visual exam, digital exam - Routine Exam Patient deferred: external exam, groin exam, perineal exam - Routine Extremities Exam Present: full ROM. Absent: cyanosis, edema - Routine Skin Exam Present: intact. Absent: cyanosis - Routine Neurological Exam Present: alert, oriented X3 - Routine Psychiatric Exam Present: normal affect OB - Results - Labs Labs: Short CBC 05/31/21 Ran
[2021-05-31 18:14] LABS: Potassium 4.3 mmoL/L (3.5-5.1)
[2021-05-31 18:16] LABS: Alanine Aminotransferase 87 U/L (12-78); Albumin Level 3.2 g/dl (3.5-5.0); Albumin/Globulin Ratio 1.1 (1.1-1.8); Alkaline Phosphatase 191 U/L (38-126); Aspartate Amino Transferase 113 U/L (14-36); Bilirubin,Total 0.2 mg/dl (0.2-1.3); Blood Urea Nitrogen 9 mg/dl (7-17); Calcium 8.8 mg/dl (8.4-10.2); Carbon Dioxide 17 mmol/L (22.0-30.0); Creatinine Clearance Estimated 126 mL/min (50-200); Estimated Glomerular Filt Rate 138 ml/min (>60); GFR (African American) 167 ML/MIN (>60); Globulin 2.8 g/dL (1.3-3.2); Glucose 99 mg/dl (74-100)
[2021-05-31 18:17] LABS: Alanine Aminotransferase 88 U/L (12-78); Albumin Level 3.2 g/dl (3.5-5.0); Alkaline Phosphatase 189 U/L (38-126); Aspartate Amino Transferase 113 U/L (14-36); Bilirubin,Direct 0.1 mg/dl (0.0-0.4); Bilirubin,Indirect 0.1 mg/dL (0.0-0.9); Bilirubin,Total 0.2 mg/dl (0.2-1.3); Bilirubin,Unconjugated 0.1 mg/dL (0.0-1.1); Glucose,Random 101 mg/dL (74-100)
[2021-05-31 18:58] LABS: Magnesium 4.3 mg/dl (1.6-2.3)
--- NOTE | 2021-05-31 19:32 | HMH.ACPN2 ---
Internal Medicine - PN: Subj *Date: 05/31/21 *Time: 19:32 Interval history: We have watched her for the last few hours. Her blood pressure continues to be elevated. Her liver function tests have slightly worsened. As result that we go ahead with a primary lower segment transverse section. She denies any headaches. Her reflexes are flat. She is on magnesium sulfate. We will do a section under spinal anesthesia. We discussed the risks of surgery that includes bleeding, infection, injuries to the bowel and bladder. We discussed the rare risk of DVT. All questions were answered and consents were signed. She is allergic to penicillin but she says she gets dizzy and passes out with penicillin. We will go ahead and give her Ancef 2 g. Exam Vital signs and Labs for Last 24 Hours: Temp Pulse Resp BP Pulse Ox 98.0 F 77 17 151/97 H 98 05/31/21 18:59 05/31/21 18:59 05/31/21 18:59 05/31/21 18:59 05/31/21 18:59 Laboratory Results - last 24 hr 05/31/21 11:40: WBC 8.5, RBC 4.27, Hgb 13.8, Hct 40.7, MCV 95.3, MCH 32.4 H, MCHC 34.0, RDW 13.6, Plt Count 239, MPV 9.8, Neut % (Auto) 73.8, Lymph % (Auto) 19.4, Polk % (Auto) 5.8, Eos % (Auto) 0.7, Baso % (Auto) 0.4, Neut # (Auto) 6.3, Lymph # (Auto) 1.6, Polk # (Auto) 0.5, Eos # (Auto) 0.1, Baso # (Auto) 0.0 05/31/21 11:40: PT 10.0 L, INR 0.88 L, APTT 29.3, Fibrinogen 465 H 05/31/21 11:40: D-Dimer 0.94 H, Sodium 136, Potassium 3.8, Chloride 112 H, Carbon Dioxide 18 L, Anion Gap 9.8, BUN 12, Creatinine 0.50 L, Estimated Creat Clear 126, Estimated GFR 138, Est GFR ( Amer) 167, Glucose 88, Uric Acid 8.0 H, Calcium 9.0, AST 108 H, ALT 80 H 05/31/21 11:40: Random Glucose 90 05/31/21 15:07: SARS-CoV-2 (PCR) Detected A, Influenza A Untype (PCR) Not detected, Influenza Type B (PCR) Not detected 05/31/21 17:19: Potassium 4.3, Carbon Dioxide 17 L, BUN 9, Creatinine 0.50 L, Estimated Creat Clear 126, Estimated GFR 138, Est GFR ( Amer) 167, Glucose 99, Calcium 8.8, Total Bilirubin 0.2, AST 113 H, ALT 87 H, Alkaline Phosphatase 191 H, Total Protein 6.0 L, Albumin 3.2 L, Globulin 2.8, Albumin/Globulin Ratio 1.1 05/31/21 17:19: Blood Type A Positive, Antibody Screen Negative 05/31/21 17:19: Random Glucose 101 H, Total Bilirubin 0.2, Direct Bilirubin 0.1, Conjugated Bilirubin 0.0, Indirect Bilirubin 0.1, Unconjugated Bilirubin 0.1, AST 113 H, ALT 88 H, Alkaline Phosphatase 189 H, Total Protein 6.0 L, Albumin 3.2 L 05/31/21 17:19: Magnesium 4.3 H I & O for Last 24 hours: Intake & Output 05/29/21 05/30/21 05/31/21 06/01/21 11:59 11:59 11:59 11:59 Weight 240 lb 244 lb - Constitutional no acute distress - *Routine HEENT Exam Head: Present: normocephalic Eye: Present: EOMI, PERRL ENT: Present: mucous membranes moist Assessment and Plan (1) COVID-19 affecting , antepartum Status: Acute Category: Medical Code(s): O98.519 - Other viral diseases complicating , unspecified trimester; U07.1 - COVID-19 (2) induced hypertension, antepartum Status: Acute Category: Medical Code(s): O13.9 - Gestational [-induced] hypertension without significant proteinuria, unspecified trimester (3) Chronic hypertension affecting Status: Acute Category: Medical Code(s): O10.919 - Unspecified pre-existing hypertension complicating , unspecified trimester - Assessment and plan all Dx Assessment and Plan for all problems:: We will go ahead with a section. We discussed the risks of the surgery. Dr. Whitaker will be in attendance.
[2021-05-31 20:27] LABS: Anion Gap 15.3 mEq/L (5-15); Chloride 110 mmol/L (98-107); Sodium 138 mmol/L (136-145)
--- NOTE | 2021-05-31 20:52 | HMH.OPNOTE ---
Date of procedure: 05/31/21 Pre-op Diagnosis:: -induced hypertension, chronic hypertension, gestational diabetes, early help syndrome, Covid positive Post-op Diagnosis:: Chronic hypertension, -induced hypertension, gestational diabetes, early HELLP syndrome, Covid positive Procedure performed:: Primary lower segment transverse section Surgeon:: Nemesio Rice MD Operations And Maintenance Technician(s):: Dr. Maciel ELECTRICAL MANAGER:: Paul Vasquez Anesthesia: spinal Estimated blood loss (mL): 600 Clinical Note:: She is a 40-year-old 5 para 2 aborta 2 who was 34 and 6 weeks gestational age. She was seen in my office this morning and her blood pressure was elevated in the 180/100 range. She was admitted to labor and delivery. Nonstress test was reactive. She did receive 1 dose of steroids early this morning. We did her blood work her liver function tests were elevated platelets were normal in the 200 range. Her uric acid was 8.0 which is elevated. We repeated her blood work about 5 hours later and her liver function tests elevated slightly again. As result of that we elected to deliver her. Since we wanted expeditiously delivered her we decided on a section. The risks and benefits of surgery were discussed with the patient. She is also Covid positive. Operative findings:: She delivered a liveborn female child at 8:21 PM in the evening of May 31, 2021. The baby had Apgars of 7 at 1 minute and 8 at 5 minutes. There was a loose nuchal cord. The amniotic fluid was clear. Ovaries and tubes appeared normal. There was a 6 mm right paratubal cyst that I just left alone. Operative note:: She was taken to the operating room where spinal anesthesia was found be adequate. She was prepped and draped in normal sterile fashion in the supine position with a leftward tilt. A Hinojosa catheter was in the bladder. A Pfannenstiel skin incision was made with knife then carried through to the underlying layer of fascia with cautery. The fascia was opened in the midline with cautery and extended laterally using Alvarado scissors. Dariela clamps were applied to the superior aspect of the fascial incision which was tented up and the underlying rectus muscles dissected off using cautery. The Dariela clamps were then applied to the inferior aspect of the fascial incision which in a similar fashion was tented up and the underlying rectus muscles dissected off using cautery. The rectus muscles were then in the midline, the peritoneum identified, and entered sharply with Metzenbaum scissors. This incision was then extended superiorly and inferiorly with cautery. We had good visualization of the bladder inferiorly. The bladder peritoneum was then opened in the midline and extended laterally using Metzenbaum scissors. A bladder flap was created digitally. Transverse incision was made through the uterine muscle to the amnion. This incision was then extended laterally using fingers traction. The amnion was entered sharply with knife. There was clear amniotic fluid. The 's head was then delivered atraumatically. A loose nuchal cord was then reduced. This was followed by the anterior shoulder and the rest of the 's body atraumatically. The oropharynx and nasopharynx were bulb suctioned. The was vigorous so we allowed the cord to continue to pulsate for approximately 1 minute. The cord was then doubly clamped and cut. The was then handed off to Dr. Dias who assigned Apgars of 7 at 1 minute and 8 at 5 minutes. We then obtained cord blood. Using gentle traction on the cord and countertraction on the fundus I was able to easily deliver the placenta intact. It had a normal three-vessel cord. The uterus was then cleared of clots and debris . The uterus was then exteriorized from the abdominal cavity. The uterine incision was then closed using running 0 Vicryl suture in a locked fashion. A second layer of the same suture was used to imbric
--- NOTE | 2021-05-31 21:00 | HMH.ANESCL ---
[facility] Anesthesia Checklist - Patient Identification Patient Identification: Arm Band - Structural Data Admitted From: Inpatient Planned Operative Procedure/s: Primary C/S Consent for Planned Operative Procedure(s) Verified: Yes Verified Documents: Surgical Consent, History and Physical - NPO Status Verified Time NPO: 18:00 (sips of water) - Additional verifications Anesthesia Reactions: No Hx Blood Transfusions: No Blood Transfusion Reaction: No - Airway Assessment C-Spine Mobility Assessed: Yes TMJ Mobility Assessed: Yes Dentition: Good Dentition - Neurological Assessment Level of Consciousness: Awake, Alert - Anesthesia Plan Anesthesia Risk discussed: Yes Anesthesia Plan: Verified ASA Class: III (e) Anesthesia Type: Spinal [facility] History I have reviewed the patient's past medical history: Yes Medical History: Reports:: Kidney Stones Denies:: Cancer, Diabetes Mellitus Type 1, Diabetes Mellitus Type 2, Internal Pacemaker, MRSA, Seizures *Have you ever received a pneumonia vaccine?: No *Have you received a flu vaccine this season?: No Other Medical History: Reports: Sinus Problems. Denies: Blood Transfusion Reaction Anesthesia experience/problems:: nac Laterality Cases: Bilateral: Other Other Surgeries: Yes: Cholecystectomy, Dilation and Curettage, Diagnostic Lap, Ureter Stent. No: , Pacemaker Amputation: No Fractures: No - *Social History Smoking Status: Never smoker Alcohol Intake: never Alcohol Intake Frequency:: other Substance Use Type: denies use *Occupational Status:: employed Housing: house Household Members: family, spouse *Travel in the last 8 weeks: None Family Hx:: No significant family history [employer] history: Spontaneous , Endometriosis
--- NOTE | 2021-05-31 21:01 | P.PN_ITS ---
[facility] Anesthesia Record Part I Intake, IV Amount: 2,000 Estimated blood loss (mL): 600 Urine output (mL): 50 Blood Pressure: 150/84 SaO2: 100 Pulse Rate: 93 Respiratory Rate: 16 Temperature: 97.2 F Patient is:: Drowsy, Stable Stable to PACU at:: 20:55
[2021-05-31 22:06] LABS: Microscopic,Cath URINE MICROSCOPIC (MICROSCOPIC)
[2021-05-31 22:09] LABS: Appearance,Urine/Cath CLEAR (Clear); Bilirubin,Cath Negative (Negative); Blood, Urine/Cath TRACE-I (Negative); Color,Urine/Cath YELLOW (Yellow); Glucose,Urine/Cath (UA) Negative (Negative); Ketones,Urine/Cath 3+ (Negative); Leukocyte Esterase,Cath Negative (Negative); Nitrate,Cath Negative (Negative); PH,Urine/Cath 5.5 (5.0-8.5); Protein,Urine/Cath Negative (Negative); Specific Gravity, Urine/Cath >= 1.030 (1.005-1.030); Urobilinogen,Cath 0.2 EU/dl (0.2)
[2021-05-31 22:12] LABS: Mucus,Urine/Cath Trace /lpf
[2021-05-31 22:20] LABS: Amphetamine/Metha Screen,Urine Negative ng/ml (<1000); Benzodiazepines Screen,Urine Negative ng/ml (<200)
[2021-05-31 22:21] LABS: Barbiturates Screen,Urine Negative ng/ml (<200)
[2021-05-31 22:22] LABS: Cannabinoid Screen,Urine Negative ng/ml (<50); Cocaine Screen,Urine Negative ng/ml (<300)
[2021-05-31 22:23] LABS: Methadone Screen,Urine Negative ng/ml (<300)
[2021-05-31 22:24] LABS: Opiate Screen,Urine Negative ng/ml (<300); Phencyclidine Screen,Urine Negative ng/ml (<25)
[2021-06-01] VITALS (11 sets, daily range): BP systolic 126–155; BP diastolic 60–86; PULSE 62–79; RESP 18; TEMP 36.9–37; O2SAT 97
[2021-06-01 08:26] LABS: Basophils % 0.3 % (0.1-2.0); Hemoglobin 12.6 g/dL (12.2-16.2); Lymphocytes # 1.7 K/mm3 (0.7-4.5); Lymphocytes % 12.8 % (10-50); Mean Corpuscular HGB Conc 33.1 g/dL (31.8-35.4); Mean Corpuscular Hemoglobin 31.4 pg (27.0-31.2); Mean Corpuscular Volume 94.9 fl (81-99); Mean Platelet Volume 10.7 fl (7.4-10.4); Monocytes # 0.7 K/mm3 (0.1-1.0); Neutrophils # 11.1 K/mm3 (1.8-7.8); Neutrophils % 81.9 % (37.0-80.0); Platelet Count 265 K/mm3 (142-424); White Blood Count 13.6 K/mm3 (4.8-10.8)
[2021-06-01 09:45] LABS: Magnesium 5.8 mg/dl (1.6-2.3)
--- NOTE | 2021-06-01 09:50 | HMH.ACPN2 ---
Internal Medicine - PN: Subj *Date: 06/01/21 *Time: 09:50 (This is and postop day #1. The patient is afebrile. Her vital signs are stable. Her wound is clean. Her abdomen is soft. Her lochia is normal. She is breast-feeding well. She is COVID-19 positive and is being treated with the appropriate precautions. Her blood pressure is 157/88, and her DTRs are normal. She remains on magnesium sulfate 2 g/h. Impression: Improving. Plan: Continue 1 hipolito sulfate and observe.) Exam Vital signs and Labs for Last 24 Hours: Temp Pulse Resp BP Pulse Ox 98.5 F 74 18 155/80 H 97 06/01/21 04:20 06/01/21 06:35 06/01/21 06:35 06/01/21 06:35 06/01/21 04:20 Laboratory Results - last 24 hr 05/31/21 11:40: WBC 8.5, RBC 4.27, Hgb 13.8, Hct 40.7, MCV 95.3, MCH 32.4 H, MCHC 34.0, RDW 13.6, Plt Count 239, MPV 9.8, Neut % (Auto) 73.8, Lymph % (Auto) 19.4, Bullock % (Auto) 5.8, Eos % (Auto) 0.7, Baso % (Auto) 0.4, Neut # (Auto) 6.3, Lymph # (Auto) 1.6, Bullock # (Auto) 0.5, Eos # (Auto) 0.1, Baso # (Auto) 0.0 05/31/21 11:40: PT 10.0 L, INR 0.88 L, APTT 29.3, Fibrinogen 465 H 05/31/21 11:40: D-Dimer 0.94 H, Sodium 136, Potassium 3.8, Chloride 112 H, Carbon Dioxide 18 L, Anion Gap 9.8, BUN 12, Creatinine 0.50 L, Estimated Creat Clear 126, Estimated GFR 138, Est GFR ( Amer) 167, Glucose 88, Uric Acid 8.0 H, Calcium 9.0, AST 108 H, ALT 80 H 05/31/21 11:40: Random Glucose 90 05/31/21 15:07: SARS-CoV-2 (PCR) Detected A, Influenza A Untype (PCR) Not detected, Influenza Type B (PCR) Not detected 05/31/21 17:19: Sodium 138, Potassium 4.3, Chloride 110 H, Carbon Dioxide 17 L, Anion Gap 15.3 H, BUN 9, Creatinine 0.50 L, Estimated Creat Clear 126, Estimated GFR 138, Est GFR ( Amer) 167, Glucose 99, Calcium 8.8, Total Bilirubin 0.2, AST 113 H, ALT 87 H, Alkaline Phosphatase 191 H, Total Protein 6.0 L, Albumin 3.2 L, Globulin 2.8, Albumin/Globulin Ratio 1.1 05/31/21 17:19: Blood Type A Positive, Antibody Screen Negative 05/31/21 17:19: Random Glucose 101 H, Total Bilirubin 0.2, Direct Bilirubin 0.1, Conjugated Bilirubin 0.0, Indirect Bilirubin 0.1, Unconjugated Bilirubin 0.1, AST 113 H, ALT 88 H, Alkaline Phosphatase 189 H, Total Protein 6.0 L, Albumin 3.2 L 05/31/21 17:19: Magnesium 4.3 H 05/31/21 20:00: Urine Opiates Screen Negative, Urine Methadone Screen Negative, Ur Barbituates Screen Negative, Ur Phencyclidine Scrn Negative, Ur Amphetamines Screen Negative, U Benzodiazepines Scrn Negative, Urine Cocaine Screen Negative, U Marijuana (THC) Screen Negative 05/31/21 20:00: Urine Color Yellow, Urine Appearance Clear, Urine pH 5.5, Ur Specific [place] >= 1.030, Urine Protein Negative, Urine Glucose (UA) Negative, Urine Ketones 3+, Urine Blood Trace-i, Urine Nitrate Negative, Urine Bilirubin Negative, Urine Urobilinogen 0.2, Ur Leukocyte Esterase Negative, Urine RBC 3-5, Urine WBC 3-5, Ur Renal Epithelial Cell 5-10 06/01/21 07:22: WBC 13.6 H D, RBC 4.00 L, Hgb 12.6, Hct 38.0, MCV 94.9, MCH 31.4 H, MCHC 33.1, RDW 14.0, Plt Count 265, MPV 10.7 H, Neut % (Auto) 81.9 H, Lymph % (Auto) 12.8, Bullock % (Auto) 5.0, Eos % (Auto) 0.0 L, Baso % (Auto) 0.3, Neut # (Auto) 11.1 H, Lymph # (Auto) 1.7, Bullock # (Auto) 0.7, Eos # (Auto) 0.0, Baso # (Auto) 0.0 06/01/21 07:22: Magnesium 5.8 H D I & O for Last 24 hours: Intake & Output 05/29/21 05/30/21 05/31/21 06/01/21 11:59 11:59 11:59 11:59 Intake Total 1999 Balance 1999 Weight 240 lb 244 lb Assessment and Plan (1) COVID-19 affecting , antepartum Status: Acute Category: Medical Code(s): O98.519 - Other viral diseases complicating , unspecified trimester; U07.1 - COVID-19 (2) induced hypertension, antepartum Status: Acute Category: Medical Code(s): O13.9 - Gestational [-induced] hypertension without significant proteinuria, unspecified trimester (3) Chronic hypertension affecting Status: Acute Category: Medical Code(s): O10.91
[2021-06-02] VITALS (13 sets, daily range): BP systolic 118–181; BP diastolic 61–97; PULSE 58–88; RESP 18; TEMP 36.8–36.9; O2SAT 98
--- NOTE | 2021-06-02 09:57 | P.PN_ITS ---
Internal Medicine - PN: Subj *Date: 06/02/21 *Time: 09:57 (This is and postop day #2. The patient is afebrile. Vital signs are stable, but her blood pressure is still waxing and waning (141/94 at this time). DTRs are normal. She has been started on labetalol 3 times daily and on Lovenox subcu daily. Her wound is clean. Her abdomen is soft. Her lochia is normal. Her uterine fundus has involuted well. She is breast-feeding. She continues under Covid protocol. Going to wean her off her magnesium sulfate if possible today.) Exam Vital signs and Labs for Last 24 Hours: Temp Pulse Resp BP Pulse Ox 98.5 F 66 18 151/81 H 97 06/02/21 00:34 06/02/21 06:00 06/02/21 04:00 06/02/21 06:00 06/01/21 20:00 I & O for Last 24 hours: Intake & Output 05/30/21 05/31/21 06/01/21 06/02/21 11:59 11:59 11:59 11:59 Intake Total 1999 Balance 1999 Weight 240 lb 244 lb Assessment and Plan (1) COVID-19 affecting , antepartum Status: Acute Category: Medical Code(s): O98.519 - Other viral diseases complicating , unspecified trimester; U07.1 - COVID-19 (2) induced hypertension, antepartum Status: Acute Category: Medical Code(s): O13.9 - Gestational [- induced] hypertension without significant proteinuria, unspecified trimester (3) Chronic hypertension affecting Status: Acute Category: Medical Code(s): O10.919 - Unspecified pre-existing hypertension complicating , unspecified trimester
[2021-06-02 10:04] LABS: Basophils % 0.4 % (0.1-2.0); Eosinophils # 0.1 K/mm3 (0.0-0.4); Eosinophils % 1.4 % (0.1-12.0); Hematocrit 35.5 % (37.0-47.0); Hemoglobin 11.8 g/dL (12.2-16.2); Lymphocytes # 1.6 K/mm3 (0.7-4.5); Lymphocytes % 18.6 % (10-50); Mean Corpuscular HGB Conc 33.2 g/dL (31.8-35.4); Mean Corpuscular Hemoglobin 31.4 pg (27.0-31.2); Mean Corpuscular Volume 94.7 fl (81-99); Mean Platelet Volume 10.8 fl (7.4-10.4); Monocytes # 0.5 K/mm3 (0.1-1.0); Monocytes % 5.9 % (1.7-9.3); Neutrophils # 6.5 K/mm3 (1.8-7.8); Neutrophils % 73.6 % (37.0-80.0); Platelet Count 253 K/mm3 (142-424); Red Blood Count 3.75 M/mm3 (4.20-5.40); Red Cell Distribution Width 14.3 % (11.5-17.5); White Blood Count 8.8 K/mm3 (4.8-10.8)
[2021-06-02 10:13] LABS: Magnesium 6.6 mg/dl (1.6-2.3)
[2021-06-02 10:43] LABS: Anion Gap 8.9 mEq/L (5-15); Blood Urea Nitrogen 10 mg/dl (7-17); Calcium 6.1 mg/dl (8.4-10.2); Carbon Dioxide 22 mmol/L (22.0-30.0); Chloride 107 mmol/L (98-107); Creatinine Clearance Estimated 126 mL/min (50-200); Estimated Glomerular Filt Rate 138 ml/min (>60); GFR (African American) 167 ML/MIN (>60); Glucose 93 mg/dl (74-100); Potassium 3.9 mmoL/L (3.5-5.1); Sodium 134 mmol/L (136-145); Uric Acid 7.2 mg/dl (2.5-6.2)
[2021-06-02 10:44] LABS: Alanine Aminotransferase 86 U/L (12-78); Aspartate Amino Transferase 84 U/L (14-36)
[2021-06-03] VITALS (7 sets, daily range): BP systolic 110–148; BP diastolic 56–86; PULSE 66–78; RESP 18
--- NOTE | 2021-06-03 12:31 | HMH.DCSUM ---
General - General Admission date:: 05/31/21 Discharge date: 06/03/21 HPI HPI: admitted from office 34 weeks with chronic hypertension and superimposed preeclampsia pre-existing covid 19 infection delivery by c section and magnesium sulfate x 48 hours LFTs trending down, Hgb stable 11.8 and platelets 253 BP continued to be elevated after discontinuation of magnesium and labetalol increased to 200mg TID Desires discharge on POD #3 because transferred to Hospital Course Hospital Course: per HPI Objective Vital signs: Temp Pulse Resp BP Pulse Ox 98.3 F 69 18 142/86 H 98 06/02/21 20:08 06/03/21 05:00 06/03/21 05:00 06/03/21 11:47 06/02/21 20:08 Narrative: CONSTITUTIONAL: no acute distress HEENT: mucous membranes moist PULMONARY: breathing unlabored without audible wheezes CV: no tachycardia or visible JVD; normal LE peripheral pulses ABD: soft, ND; appropriately tender but no rebound/guarding : fundus firm at/below umbilicus SKIN: incision well approximated with no drainage, erythema or induration EXT: 1+ edema LEs NEURO: alert/oriented, no altered mental status PSYCH: appropriate mood and demeanor Results Labs on day of discharge: Labs from last 24 hours 06/02/21 08:30 D-Dimer TNP DS: Diagnosis - Discharge Diagnosis (1) 34 weeks gestation of Status: Acute (2) Delivery by section Status: Acute (3) Chronic hypertension affecting Status: Acute (4) induced hypertension, antepartum Status: Acute (5) COVID-19 affecting , antepartum Status: Acute Discharge Plan - Patient Discharge Instructions ACTIVITY: Continue current activity DIET: regular diet - Follow up Plan Disposition: Home, Self-Care Condition at discharge:: Stable Home Medications: Home Medications Medication Instructions Recorded Confirmed Type prenat.vits,jose f,aca-[id number]-gkrul 1 tab PO DAILY 05/01/20 05/31/21 History folic acid 0.8 mg capsule 0.8 mg PO DAILY 11/20/20 05/31/21 History aspirin 81 mg chewable tablet 81 mg PO DAILY 04/26/21 05/31/21 History Ferrous Sulfate 325 mg PO DAILY 05/03/21 05/31/21 History NIFEdipine [Nifedipine ER] 60 mg PO DAILY 05/03/21 05/31/21 History methylPREDNISolone See Rx Instructions PO PER PKG DIR 05/31/21 05/31/21 History [Methylprednisolone] Ibuprofen [Motrin 400mg 800 mg PO Q6HP PRN #40 tab 06/03/21 Rx tablet] Labetalol HCl [Normodyne 100mg 200 mg PO TID #180 tab 06/03/21 Rx tablet] Oxycodone HCl [OxyIR 5mg tablet] 5 mg PO Q4HP PRN #24 tablet 06/03/21 Rx Prescriptions/Medication Reconciliation: New Acetaminophen [Acetaminophen 325mg tab] 650 mg PO Q4HP PRN tablet PRN Reason: Mild Pain Labetalol HCl [Normodyne 100mg tablet] 200 mg PO TID #180 tab Oxycodone HCl [OxyIR 5mg tablet] 5 mg PO Q4HP PRN #24 tablet PRN Reason: Moderate To Severe Pain Ibuprofen [Motrin 400mg tablet] 800 mg PO Q6HP PRN #40 tab PRN Reason: Mild To Moderate Pain Continued prenat.vits,jose f,klg-[id number] 1 tab PO DAILY aspirin 81 mg chewable tablet 81 mg PO DAILY folic acid 0.8 mg capsule 0.8 mg PO DAILY Ferrous Sulfate 325 mg PO DAILY NIFEdipine [Nifedipine ER] 60 mg PO DAILY methylPREDNISolone [Methylprednisolone] See Rx Instructions PO PER PKG DIR - Problem Reconciliation Problems Reviewed?: Yes
[2021-06-05 08:49] VITALS: BP 146/86; PULSE 81; TEMP 36.8
--- NOTE | 2021-06-05 08:49 | HMH.ANESII ---
[facility] Anesthesia Record Part II Discharge Time: 21:25 Destination: Obstetric PACU nurse assessment reviewed?: Yes Patient Condition:: Good Anesthesia Complications:: None Swallowing reflex intact?: Yes Cyanosis?: No Blood Pressure: 146/86 Pulse Rate: 81 Temperature: 98.2 F Mental Status: Alert & Oriented Pain level:: 4 Nausea and/or vomitting:: None Intake, IV Amount: 1,500
== END 2021-06-03 15:45 | disposition home or self-care (01) | DRG 786 ==
LOC: OBOUT 15:52 → OB 15:52
PROVIDERS: Obstetrics & Gynecology; Admitting Provider Nurse Practitioner Obstetrics & Gynecology; PCP Family Medicine; Visit Provider Nurse Practitioner Obstetrics & Gynecology
PROC: 10D00Z1 Extraction of Products of Conception, Low, Open Approach (ICD-10-PCS; CPT 59514; principal; 2021-05-31 19:45)
DX: O10.913 Unspecified pre-existing hypertension complicating pregnancy, third trimester (principal); U07.1 COVID-19; O98.513 Other viral diseases complicating pregnancy, third trimester; O13.3 Gestational [pregnancy-induced] hypertension without significant proteinuria, third trimester; O14.24 HELLP syndrome, complicating childbirth; Z3A.34 34 weeks gestation of pregnancy; Z37.0 Single live birth; O24.410 Gestational diabetes mellitus in pregnancy, diet controlled
CPT/HCPCS: 59514; 36415; 59025; 80048; 80053; 80076; 80305; 81001; 82947; 83735; 84450; 84460; 84550; 85025; 85378; 85384; 85610; 85730; 86850; 94761; 96372; C9290; C9803; G0283; J2405; U0003; U0005

== ENCOUNTER → 2023-03-02 16:53 | Outpatient (CLI) | payer BC, SELFPAY | PROVIDERS: PCP Family Medicine; Visit Provider Nurse Practitioner Obstetrics & Gynecology | DX: Z12.31 Encounter for screening mammogram for malignant neoplasm of breast (principal) ==